=== PATIENT | female | born 1955 | race Caucasian/White ===

== ENCOUNTER 2018-10-26 00:05 | Inpatient (IN) | payer MEDICARE ==
[2018-10-26] MEDS: NICARDipine HCL 30 MG CAPSULE PO ×2 (01:42→05:14)
[2018-10-26] MEDS: HYDROmorphONE 2 MG/ML SYG IV (01:43)
[2018-10-26] MEDS: ONDANSETRON 4 MG INJ IV ×2 (01:43→05:00)
[2018-10-26] MEDS: LABETALOL HCL 20MG INJ IV (01:43)
[2018-10-26 02:07] LABS: ADD MAN DIFF? NO
[2018-10-26 02:08] LABS: BASOPHILS % 0.3 % (0.0-2.0); EOSINOPHILS # 0.1 10^3/ul (0.0-0.5); HEMATOCRIT 38.3 % (37.0-47.0); LYMPHOCYTES # 1.5 10^3/ul (0.8-2.9); LYMPHOCYTES % 18.5 % (15.0-51.0); MEAN CORPUSCULAR HEMOGLOBIN 29.5 pg (29.0-33.0); MEAN CORPUSCULAR HGB CONC 33.9 g/dl (32.0-37.0); MONOCYTE # 0.6 10^3/ul (0.3-0.9); MONOCYTES % 7.2 % (0.0-11.0); NEUTROPHIL # 5.7 10^3/ul (1.6-7.5); NEUTROPHILS % 72.5 % (39.0-77.0); PLATELET COUNT 226 10^3/UL (140-415); RED CELL DISTRIBUTION WIDTH 12.6 % (11.5-14.5)
[2018-10-26 02:08] LABS: WHITE BLOOD COUNT 7.9 10^3/ul (4.8-10.8)
[2018-10-26] MEDS: SOD CHLORIDE 0.9% 1,000 ML IV ×5 (02:14→17:05)
[2018-10-26 02:26] LABS: ALANINE AMINOTRANSFERASE 13 IU/L (13-69); ALBUMIN 4.3 g/dl (3.3-4.9); ALBUMIN/GLOBULIN RATIO 1.19; ALKALINE PHOSPHATASE 61 IU/L (42-121); ANION GAP 12 (5-13); ASPARTATE AMINO TRANSFERASE 21 IU/L (15-46); BILIRUBIN,INDIRECT 0.3 mg/dl (0-1.1); BILIRUBIN,TOTAL 0.3 mg/dl (0.2-1.3); BLOOD UREA NITROGEN 23 mg/dl (7-20); CALCIUM 8.9 mg/dl (8.4-10.2); CARBON DIOXIDE 24 mmol/L (21-31); CHLORIDE 105 mmol/L (97-110); CREATININE 0.75 mg/dl (0.44-1.00); Estimated GFR > 60 mL/min (>60); GLUCOSE 130 mg/dl (70-220); POTASSIUM 4.2 mmol/L (3.5-5.1); SODIUM 141 mmol/L (135-144); TOTAL PROTEIN 7.9 g/dl (6.1-8.1)
[2018-10-26 02:28] LABS: INR 0.88; PT RATIO 0.9
[2018-10-26 02:29] LABS: PARTIAL THROMBOPLASTIN TIME 26.9 Sec (23.0-35.0)
[2018-10-26] MEDS ORDERED: ACETAMINOPHEN 325 MG TAB PO ×2 (02:30)
[2018-10-26] MEDS ORDERED: NACL 0.9% 3 ML SYG IV (02:30)
[2018-10-26] MEDS ORDERED: ONDANSETRON 4 MG INJ IV (02:30)
[2018-10-26 05:32] LABS: ADD MAN DIFF? NO
[2018-10-26 05:43] LABS: WHITE BLOOD COUNT 11.8 10^3/ul (4.8-10.8)
[2018-10-26 05:43] LABS: BASOPHILS % 0.2 % (0.0-2.0); EOSINOPHILS % 0.1 % (0.0-7.0); HEMATOCRIT 37.9 % (37.0-47.0); HEMOGLOBIN 12.7 g/dl (12.0-16.0); LYMPHOCYTES # 1.2 10^3/ul (0.8-2.9); LYMPHOCYTES % 10.1 % (15.0-51.0); MEAN CORPUSCULAR HEMOGLOBIN 29.6 pg (29.0-33.0); MEAN CORPUSCULAR HGB CONC 33.5 g/dl (32.0-37.0); MEAN CORPUSCULAR VOLUME 88.3 fl (82.0-101.0); MEAN PLATELET VOLUME 9.2 fl (7.4-10.4); MONOCYTE # 0.5 10^3/ul (0.3-0.9); MONOCYTES % 4.2 % (0.0-11.0); NEUTROPHILS % 84.8 % (39.0-77.0); PLATELET COUNT 232 10^3/UL (140-415); RED BLOOD COUNT 4.29 10^6/ul (4.20-5.40); RED CELL DISTRIBUTION WIDTH 12.6 % (11.5-14.5)
[2018-10-26 05:59] LABS: HEMOGLOBIN A1C 5.3 % (0-5.9)
[2018-10-26 06:09] LABS: ALANINE AMINOTRANSFERASE 18 IU/L (13-69); ALBUMIN 4.3 g/dl (3.3-4.9); ALBUMIN/GLOBULIN RATIO 1.48; ALKALINE PHOSPHATASE 56 IU/L (42-121); ANION GAP 9 (5-13); ASPARTATE AMINO TRANSFERASE 20 IU/L (15-46); BILIRUBIN,INDIRECT 0.2 mg/dl (0-1.1); BILIRUBIN,TOTAL 0.2 mg/dl (0.2-1.3); BLOOD UREA NITROGEN 24 mg/dl (7-20); CALCIUM 8.8 mg/dl (8.4-10.2); CARBON DIOXIDE 28 mmol/L (21-31); CHLORIDE 103 mmol/L (97-110); CREATININE 0.77 mg/dl (0.44-1.00); Estimated GFR > 60 mL/min (>60); GLUCOSE 134 mg/dl (70-220); MAGNESIUM 1.9 mg/dl (1.7-2.5); POTASSIUM 5.1 mmol/L (3.5-5.1); SODIUM 140 mmol/L (135-144); TOTAL PROTEIN 7.2 g/dl (6.1-8.1)
[2018-10-26 06:13] LABS: TROPONIN-I < 0.012 ng/ml (0.000-0.120)
[2018-10-26] MEDS ORDERED: HEPARIN 5,000 UNIT/0.5 ML VIAL ×3 (07:00→22:36)
[2018-10-26] MEDS: HEPARIN 5,000 UNIT/1 ML VIAL SC ×3 (07:04→22:41)
[2018-10-26] MEDS: morphine 2 MG INJ IV (07:25)
[2018-10-26] MEDS: HYDROCODONE/APAP (5/325) TAB PO (08:03)
[2018-10-26 08:05] LABS: FREE T4 (FREE THYROXINE) 1.11 ng/dl (0.78-2.44)
[2018-10-26 08:06] LABS: FREE T3 3.79 pg/ml (2.77-5.27)
[2018-10-26] MEDS: HYDROmorphONE 1 MG/ML SYG IV ×4 (09:24→20:43)
[2018-10-26] MEDS: hydrALAzine 20 MG INJ IV (20:43)
[2018-10-27] MEDS: HYDROmorphONE 1 MG/ML SYG IV ×5 (01:06→13:44)
[2018-10-27] MEDS: hydrALAzine 20 MG INJ IV ×3 (03:30→21:44)
[2018-10-27] MEDS: SOD CHLORIDE 0.9% 1,000 ML IV ×5 (05:52→20:32)
[2018-10-27] MEDS: HEPARIN 5,000 UNIT/1 ML VIAL SC ×3 (06:00→21:51)
[2018-10-27] MEDS ORDERED: ROCURONIUM 50 MG INJ ×2 (07:00→16:37)
[2018-10-27] MEDS: HYDROCODONE/APAP (5/325) TAB PO (11:50)
[2018-10-27] MEDS ORDERED: HYDROmorphONE 2 MG/ML SYG (16:37)
[2018-10-27] MEDS ORDERED: MIDAZOLAM 1 MG/ML 2 ML INJ (16:37)
[2018-10-27] MEDS ORDERED: PROPOFOL 20 ML (16:37)
[2018-10-27] MEDS ORDERED: ROPIVACAINE 0.5 % 30 ML VIAL (16:37)
[2018-10-27] MEDS ORDERED: MEPERIDINE 25 MG INJ IV (17:00)
[2018-10-27] MEDS ORDERED: METOCLOPRAMIDE 10 MG INJ IV (17:00)
[2018-10-27] MEDS ORDERED: EPHEDrine SULFATE 50 MG/5 ML SYG IV (17:00)
[2018-10-27] MEDS ORDERED: OXYCODONE/ACETAMINOPHEN (5/325) TAB PO (17:00)
[2018-10-27] MEDS ORDERED: LABETALOL HCL 20MG INJ IV (17:00)
[2018-10-27] MEDS ORDERED: HYDROmorphONE 1 MG/5 ML IV SYRINGE IV ×3 (17:00)
[2018-10-27] MEDS ORDERED: FENTAnyl 50 MCG/ML VIAL IV ×3 (17:00)
[2018-10-27] MEDS ORDERED: DIPHENHYDRAMINE 50 MG INJ IV (17:00)
[2018-10-27] MEDS ORDERED: hydrALAzine 20 MG INJ IV (17:00)
[2018-10-27] MEDS ORDERED: ONDANSETRON 4 MG INJ IV (17:00)
[2018-10-27] MEDS: POLYMYXIN/BACITRACIN 1L IRRIG IRR (17:15)
[2018-10-27] MEDS ORDERED: KETOROLAC 30 MG INJ (17:38)
[2018-10-27] MEDS ORDERED: METOCLOPRAMIDE 10 MG INJ (17:38)
[2018-10-27] MEDS ORDERED: DEXAMETHASONE 4 MG/ML 1 ML INJ (17:38)
[2018-10-27] MEDS ORDERED: ONDANSETRON 4 MG INJ (17:38)
[2018-10-27] MEDS ORDERED: SUGAMMADEX SODIUM 200 MG/2 ML VIAL IV (18:36)
[2018-10-27] MEDS ORDERED: CEFAZOLIN 1 GM/50 ML (PMX) 50 ML IVPB (19:00)
[2018-10-27] MEDS ORDERED: NACL 0.9% 3 ML SYG IV (19:00)
[2018-10-27] MEDS ORDERED: HYDROCODONE/APAP (5/325) TAB PO (19:30)
[2018-10-27] MEDS ORDERED: morphine 4 MG/ML VIAL IV (19:30)
[2018-10-27] MEDS ORDERED: HEPARIN 5,000 UNIT/0.5 ML VIAL (21:38)
[2018-10-28] MEDS: CEFAZOLIN 1 GM/50 ML (PMX) 50 ML IVPB ×3 (01:58→17:14)
[2018-10-28] MEDS: SOD CHLORIDE 0.9% 1,000 ML IV ×4 (04:24→18:24)
[2018-10-28] MEDS: ENOXAPARIN 40 MG/0.4 ML SYG SC (08:24)
[2018-10-28] MEDS: hydrALAzine 20 MG INJ IV ×3 (14:46→23:43)
[2018-10-28] MEDS: ONDANSETRON 4 MG INJ IV (17:08)
[2018-10-28] MEDS: BISACODYL (EC) 5 MG TAB PO (17:15)
[2018-10-29] MEDS: morphine 2 MG INJ IV (01:32)
[2018-10-29] MEDS: SOD CHLORIDE 0.9% 1,000 ML IV (04:56)
[2018-10-29 05:31] LABS: ADD MAN DIFF? NO
[2018-10-29 05:42] LABS: BASOPHILS % 0.2 % (0.0-2.0); EOSINOPHILS % 0.3 % (0.0-7.0); HEMOGLOBIN 11.3 g/dl (12.0-16.0); LYMPHOCYTES # 1.7 10^3/ul (0.8-2.9); LYMPHOCYTES % 16.2 % (15.0-51.0); MEAN CORPUSCULAR HEMOGLOBIN 29.6 pg (29.0-33.0); MEAN CORPUSCULAR HGB CONC 33.2 g/dl (32.0-37.0); MEAN PLATELET VOLUME 9.3 fl (7.4-10.4); MONOCYTE # 0.7 10^3/ul (0.3-0.9); NEUTROPHIL # 7.9 10^3/ul (1.6-7.5); NEUTROPHILS % 75.7 % (39.0-77.0); PLATELET COUNT 207 10^3/UL (140-415); RED BLOOD COUNT 3.82 10^6/ul (4.20-5.40); RED CELL DISTRIBUTION WIDTH 13.4 % (11.5-14.5)
[2018-10-29 05:42] LABS: WHITE BLOOD COUNT 10.5 10^3/ul (4.8-10.8)
[2018-10-29 06:06] LABS: ANION GAP 7 (5-13); BLOOD UREA NITROGEN 13 mg/dl (7-20); CALCIUM 7.4 mg/dl (8.4-10.2); CARBON DIOXIDE 26 mmol/L (21-31); CHLORIDE 106 mmol/L (97-110); CREATININE 0.62 mg/dl (0.44-1.00); Estimated GFR > 60 mL/min (>60); GLUCOSE 107 mg/dl (70-220); MAGNESIUM 1.8 mg/dl (1.7-2.5); PHOSPHORUS 2.4 mg/dl (2.5-4.9); SODIUM 139 mmol/L (135-144)
[2018-10-29 06:17] LABS: POTASSIUM 2.9 mmol/L (3.5-5.1)
[2018-10-29] MEDS: POTASSIUM CHLORIDE (SR) 20 MEQ TAB PO ×2 (06:46→10:27)
[2018-10-29] MEDS: hydrALAzine 20 MG INJ IV ×2 (07:49→11:59)
[2018-10-29] MEDS: HYDROmorphONE 1 MG/ML SYG IV (08:44)
[2018-10-29] MEDS: DOCUSATE SODIUM 100 MG CAP PO ×3 (08:44→21:00)
[2018-10-29] MEDS: ENOXAPARIN 40 MG/0.4 ML SYG SC (08:45)
[2018-10-29] MEDS: MAGNESIUM HYDROXIDE 30ML CUP PO (12:09)
[2018-10-29] MEDS: BISACODYL (EC) 5 MG TAB PO (12:09)
[2018-10-29] MEDS: SENNA TAB PO ×2 (12:30→21:00)
[2018-10-29] MEDS: POTASSIUM CHLORIDE 30 MEQ in SOD CHLORIDE 0.45% 1,000 ML IV ×2 (13:36→22:30)
[2018-10-29] MEDS: NA PHOSPHATE/BIPHOS 133 ML ENEMA PR (21:30)
[2018-10-30] MEDS: hydrALAzine 20 MG INJ IV ×3 (00:06→14:07)
[2018-10-30] MEDS: FAMOTIDINE 20 MG TAB PO (08:12)
[2018-10-30] MEDS: DOCUSATE SODIUM 100 MG CAP PO (08:12)
[2018-10-30] MEDS: SENNA TAB PO (08:12)
[2018-10-30] MEDS: ENOXAPARIN 40 MG/0.4 ML SYG SC (08:14)
[2018-10-30 08:47] LABS: ANION GAP 11 (5-13); BLOOD UREA NITROGEN 11 mg/dl (7-20); CARBON DIOXIDE 22 mmol/L (21-31); CHLORIDE 105 mmol/L (97-110); CREATININE 0.61 mg/dl (0.44-1.00); Estimated GFR > 60 mL/min (>60); GLUCOSE 118 mg/dl (70-220); POTASSIUM 3.7 mmol/L (3.5-5.1); SODIUM 138 mmol/L (135-144)
[2018-10-30] MEDS: AMLODIPINE 5 MG TAB PO (11:07)
== END 2018-10-30 18:30 | disposition home health service (06) | DRG 493 ==
LOC: E/R 00:05 → MS1 02:15
PROC: 0QSJ04Z Reposition Right Fibula with Internal Fixation Device, Open Approach (ICD-10-PCS; principal; 2018-10-27 16:42)
PROC: 0QSG04Z Reposition Right Tibia with Internal Fixation Device, Open Approach (ICD-10-PCS; 2018-10-27 16:42)
PROC: 0QSG04Z Reposition Right Tibia with Internal Fixation Device, Open Approach (ICD-10-PCS; 2018-10-27 16:42)
DX: S82.851A Displaced trimalleolar fracture of right lower leg, initial encounter for closed fracture (principal); I16.1 Hypertensive emergency; X58.XXXA Exposure to other specified factors, initial encounter; I10 Essential (primary) hypertension; K59.00 Constipation, unspecified
CPT/HCPCS: 36415; 71045; 73600; 73610-RT; 80048; 80053; 83036; 83735; 84100; 84439; 84443; 84481; 84484; 85025; 85610; 85730; 93005; 96374; 96375; 97110; 97116; 97161; 97530; 99285-25